=== PATIENT | female | born 1945 | race Caucasian/White ===

== ENCOUNTER 2022-08-06 20:01 | Emergency (ER) | payer OTHER ==
[~2022-08-06] VITALS: Ht 152.4 cm; Wt 66.7 kg
[2022-08-06] MEDS ORDERED: COZAAR25 MG PO (20:20)
[2022-08-06] MEDS ORDERED: PRAVASTATIN SOD10 MG PO (20:21)
[2022-08-06] MEDS ORDERED: TENORMIN50 M1 PO (20:21)
[2022-08-06] MEDS ORDERED: SYNTHROID112 MCG PO (20:21)
== END 2022-08-06 23:47 | disposition home or self-care (01) ==
LOC: ER 20:01
DX: R20.0 Anesthesia of skin (principal); R20.2 Paresthesia of skin; I10 Essential (primary) hypertension; E03.9 Hypothyroidism, unspecified; Z88.2 Allergy status to sulfonamides